=== PATIENT | female | born 1960 | race Caucasian/White ===

== ENCOUNTER 2017-07-25 11:47 | Emergency (ER) | payer OTHER ==
--- NOTE | 2017-07-25 12:52 | ED ---
General Adult HPI - General Chief complaint: Abdominal Pain Stated complaint: kideny stone,back pain Time Seen by Provider: 07/25/17 12:21 Source: patient Mode of arrival: ambulatory Limitations: no limitations - History of Present Illness Initial comments: Patient is a 56-year-old female with past medical history of kidney stones who presents to the ED via ambulance from an outside hospital for evaluation of kidney stones. Patient reports that she woke Tuesday morning with right-sided flank pain. She was evaluated an outside hospital and was told that she had a 6 mm UVJ stone, patient was subsequently discharged home with oral narcotic medication, antiemetics and Flomax. Patient reports that she was able to sleep throughout Tuesday afternoon and that Tuesday throughout the day she was very uncomfortable. She woke at 2 this morning with increased pain in her right flank and return to the outside hospital where evaluation revealed no increasing creatinine or significant change in labs. Per the report from outside hospital their urologist were not willing to admit or intervene on the patient today so the patient requested transfer to our hospital. Patient reports that she's been able to tolerate by mouth intake, she's been able to take her pain medications which she does report helped the pain. However she states that she feels that she can't work while taking these pain medications so she came to the hospital today to have the kidney stone taken care of. - Related Data Home Medications Medication Instructions Recorded Confirmed Atorvastatin [Lipitor] 20 mg PO HS 07/25/17 07/25/17 Allergies Allergy/AdvReac Type Severity Reaction Status Date / Time No Known Allergies Allergy Verified 07/25/17 12:45 Review of Systems ROS Statement: Those systems with pertinent positive or pertinent negative responses have been documented in the HPI. ROS Other: All systems not noted in ROS Statement are negative. Constitutional: Denies: fever Respiratory: Denies: cough, dyspnea Cardiovascular: Denies: chest pain, palpitations Endocrine: Reports: fatigue Gastrointestinal: Reports: abdominal pain, nausea Genitourinary: Reports: urgency, other (right flank pain) Musculoskeletal: Reports: back pain Skin: Denies: rash Neurological: Denies: headache Hematological/Lymphatic: Denies: easy bleeding, easy bruising Past Medical History Past Medical History: Hyperlipidemia History of Any Multi-Drug Resistant Organisms: None Reported Past Surgical History: Cholecystectomy Past Psychological History: No Psychological Hx Reported Smoking Status: Current every day smoker Past Alcohol Use History: None Reported Past Drug Use History: None Reported General Exam Limitations: no limitations General appearance: alert, in no apparent distress Head exam: Present: atraumatic, normocephalic, normal inspection Eye exam: Present: normal appearance, PERRL, EOMI. Absent: scleral icterus, conjunctival injection, periorbital swelling ENT exam: Present: normal exam, mucous membranes moist Neck exam: Present: normal inspection. Absent: tenderness, meningismus, lymphadenopathy Respiratory exam: Present: normal lung sounds bilaterally. Absent: respiratory distress, wheezes, rales, rhonchi, stridor Cardiovascular Exam: Present: regular rate, normal rhythm, normal heart sounds. Absent: systolic murmur, diastolic murmur, rubs, gallop, clicks GI/Abdominal exam: Present: soft, normal bowel sounds. Absent: distended, tenderness, guarding, rebound, rigid Rectal exam: Present: deferred Back exam: Present: normal inspection, CVA tenderness (R) Neurological exam: Present: alert, oriented X3, CN II-XII intact Psychiatric exam: Present: agitated Skin exam: Present: warm, dry, intact, normal color. Absent: rash Course Vital Signs 07/25/17 07/25/17 11:53 14:40 Temperature 97.7 F 99 F Pulse Rate 71 72 Respiratory 18 17 Rate Blood Pressure 117/72 132/61 O2 Sat by Pulse 97 99 Oximetry - Reevaluation(s) Reevaluation #1: Patient reevaluated, resting comfortably. Patient tolerated drinking water has required no narcotic pain medications. 07/25/17 14:44 Medical Decision Making - Medical Decision Making Patient was seen and evaluated Vital signs were reviewed History was obtained from report from outside emergency Department, medical record and from the patient herself Physical exam reveals patient with right flank pain Patient appears well-hydrated, reports she is tolerating by mouth intake. Will obtain an ultrasound to evaluate for hydronephrosis Ultrasound reveals bilateral nephrolithiasis with only mild hydronephrosis Review of the patient's outpatient labs reveal normal creatinine level, no evidence of urinary tract infection Patient is tolderating by mouth intake Advised the patient to continue her treatment regimen with antiemetics, [place] and Flomax and to call urology tomorrow morning for follow-up. Patient states that she was referred to urologist at [address] [place] [id number] by the previous hospital and would like a urologist closer. I will provide the patient with follow-up to a local urologist. I advised the patient that if she develops intractable pain, pain not responsive to her by mouth narcotics, nausea, vomiting or inability to tolerate her by mouth medications that she needs to return to an emergency department for further evaluation as this would be indication for IV therapy and possible intervention. Patient expressed understanding and agreement with the plan for discharge home. Patient requested to have a day off of work tomorrow because she doesn't feel she can work while under the influence of narcotics. I will provide the patient with a work note. All questions pertaining to care were answered to the best of my ability and the patient was discharged home in stable condition. Disposition Clinical Impression: Nephrolithiasis Disposition: HOME SELF-CARE Condition: Good Instructions: Kidney Stones (ED) Referrals: Krystina Ashby DO [Primary Care Provider] - 1-2 days Mick James MD [STAFF PHYSICIAN] - 1-2 days Decision Time: 14:45
--- NOTE | 2017-07-25 13:36 | US ---
EXAMINATION TYPE: US kidneys/renal and bladder DATE OF EXAM: 07/25/2017 COMPARISON: NONE CLINICAL HISTORY: RIght flank pain. EXAM MEASUREMENTS: Right Kidney: 9.8 x 4.8 x 5.3 cm Left Kidney: 10.9 x 5.9 x5.2 cm Right Kidney: Inferior pole obscured by overlying bowel gas, mild hydronephrosis., echogenic foci, pr obable stone measuring 0.4 x 0.3 x 0.4cm Left Kidney: echogenic foci, probable stone measuring 0.2 x 0.3 x 0.4cm Bladder: wnl IMPRESSION: 1. Mild right hydronephrosis. 2. Bilateral nonobstructing renal stones measuring less than 0.5 cm each.
[2017-07-25 14:41] VITALS: BP 132/61; PULSE 72; RESP 17; TEMP 99
[2017-07-25] MEDS ORDERED: VANCOMYCIN 1,000 MG in SODIUM CHLORIDE 0.9% 250 ML IVPB STA (14:53)
== END 2017-07-25 15:00 | disposition home or self-care (01) ==
LOC: EC 11:47
DX: N13.2 Hydronephrosis with renal and ureteral calculous obstruction (principal); E78.5 Hyperlipidemia, unspecified; F17.200 Nicotine dependence, unspecified, uncomplicated; Z90.49 Acquired absence of other specified parts of digestive tract; Z79.899 Other long term (current) drug therapy
CPT/HCPCS: 76770; 99284

== ENCOUNTER → 2017-08-12 | Outpatient (CLI) | payer OTHER ==
--- NOTE | 2017-08-12 15:15 | XR ---
Abdomen HISTORY: Ureteral calculus, kidney stone Frontal view of the abdomen submitted on 2 images Correlation to ultrasound kidneys 07/25/2017 Calcification is present within the distribution of the proximal right ureter in the paraspinal locat ion measuring approximately 11 mm in greatest cephalocaudal dimension by 6 to 7 mm in transverse dime nsion, there may be 2 calcifications present rather one. Surgical clips are present in the right uppe r quadrant. Lung bases are clear. Probable phleboliths present within the pelvis. 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 There is remodeling present joint space loss and marginal spurring. Subcho ndral sclerosis also present. IMPRESSION: Findings compatible with right-sided ureteral calculus, there may be 2 calculi present. A dditional findings above.
== END ==
LOC: RADXRMAIN 13:45
PROVIDERS: ATTEND Urology
DX: N20.1 Calculus of ureter (principal)
CPT/HCPCS: 74000

== ENCOUNTER → 2017-08-30 | Outpatient (CLI) | payer OTHER ==
[2017-08-30 17:20] LABS: Blood Urea Nitrogen 14 mg/dL (7-17); Non-African American GFR(MDRD) >60 (>60 ml/min/1.73 sqM)
[2017-08-30 18:03] LABS: Partial Thromboplastin Time 26.1 sec (22.0-30.0); Prothrombin Time 10.2 sec (9.0-12.0)
== END | disposition home or self-care (01) ==
LOC: LABPAT 16:21
PROVIDERS: ATTEND Urology
DX: N20.1 Calculus of ureter (principal)
CPT/HCPCS: 36415; 82565; 84520; 85610; 85730

== ENCOUNTER 2017-09-05 13:23 | Day surgery (SDC) | payer OTHER ==
[2017-08-31 12:50] VITALS: BMI 31.6
[~2017-09-05 13:23] MED LIST: DEXAMETHASONE SOD PHOSPHATE 10 MG/ML 1 ML VIAL IV ONE; LACTATED RINGERS 1,000 ML IV SCH; LIDOCAINE 1% 20 ML VIAL (10MG/ML) FOR IV START INTRADERMA PRN; Pre Op ABX Message 1 EACH MISC MISCELLANE ONE
--- NOTE | 2017-09-05 13:33 | XR ---
EXAMINATION TYPE: XR KUB DATE OF EXAM: 09/05/2017 COMPARISON: 08/12/2017 HISTORY: Kidney stone TECHNIQUE: One view abdominal series FINDINGS: There is a calcification adjacent to the right transverse process of L3 measuring a diameter of 6 mm. Stable in position. No additional suspicious calcifications are seen. Previous surgery in the gallbladder fossa. Calcific ations in the pelvis the left are stable likely vascular. Arthropathy of the hip greater on the left noted. Bowel gas pattern is nonspecific. IMPRESSION: 1. Stable right ureteral calculus measuring 6 mm at the level the right L3 transverse process.
[2017-09-05 13:53] VITALS: RESP 16; TEMP 98.5
[2017-09-05] MEDS ORDERED: fentaNYL (PF) 50 MCG/ML 2 ML AMP ONE (14:31)
[2017-09-05] MEDS ORDERED: MIDAZOLAM 2 MG/2 ML VIAL ONE (14:31)
[2017-09-05] MEDS ORDERED: PROPOFOL 10 MG/ML 20 ML VIAL IV ONE (14:31)
--- NOTE | 2017-09-05 15:11 | P.OP ---
Date of Procedure: 09/05/17 Preoperative Diagnosis: Right Ureteral Calculus Postoperative Diagnosis: Same Procedure(s) Performed: Right extracorporal shockwave lithotripsy (ESWL) Anesthesia: MAC Surgeon: Mick James Estimated Blood Loss (ml): 0 IV fluids (ml): 600 Pathology: none sent Condition: stable Disposition: PACU Indications for Procedure: The patient is a 57-year-old woman with right renal colic due to a 6 x 9 mm right proximal ureteral calculus. Alternative treatment options were reviewed, and she elected to undergo ESWL. Operative Findings: 6 mm right proximal ureteral calculus Description of Procedure: The patient was taken to the operating room and placed on the [email or web address] Delta II lithotripter in the supine position. The calculus was seen on biplanar fluoroscopy. Once the patient was properly positioned and sedated, lithotripsy was performed. The energy level was gradually increased per protocol, to an energy level of 5. After 200 shocks were administered, a 2 minute pause was instituted per protocol. A total of 2500 shocks were given at a rate of 80 shocks per minute. Fluoroscopy was utilized at a minimum to ensure proper positioning and determine the treatment status. The calculus changed in appearance, consistent with fragmentation. The patient tolerated the procedure well was taken to the recovery room in stable condition. Instructions were given to strain the urine, and the patient will follow-up with Dr. Harrison in one week.
[2017-09-05 15:37] VITALS: BP 113/58; PULSE 73
== END 2017-09-05 16:02 | disposition home or self-care (01) ==
LOC: ORWHC2ENDO 13:23
PROVIDERS: ATTEND Urology
DX: N20.1 Calculus of ureter (principal); E78.5 Hyperlipidemia, unspecified; F17.200 Nicotine dependence, unspecified, uncomplicated; Z79.899 Other long term (current) drug therapy; Z87.442 Personal history of urinary calculi; Z79.891 Long term (current) use of opiate analgesic
CPT/HCPCS: 74000; 50590; J2250; J1100; J3010; J2704

== ENCOUNTER → 2017-09-12 | Outpatient (CLI) | payer OTHER ==
--- NOTE | 2017-09-12 15:06 | XR ---
Abdomen HISTORY: Ureteral calculus Frontal view of the abdomen on 2 images correlated to prior abdomen 09/05/2017 The right-sided ureteral calculus is no longer evident. No other significant interval changes are pre sent. IMPRESSION: Interval lithotripsy, right ureteral calculus no longer seen
== END | disposition home or self-care (01) ==
LOC: RADXRMAIN 13:57
PROVIDERS: ATTEND Urology
DX: N20.1 Calculus of ureter (principal)
CPT/HCPCS: 74000